=== PATIENT | female | born 1935 | race Caucasian/White ===

== ENCOUNTER 2020-05-12 14:15 | Inpatient (IN) | payer MEDICARE, MEDICAID ==
[~2020-05-12] VITALS: Ht 165.1 cm; Wt 99.8 kg
--- NOTE | 2020-05-12 14:15 | NUR ---
BIBRA 80 FROM HOME C/O L SIDED CHEST PRESSURE STARTED 1HR PERFORMANCE IMPROVEMENT MANAGER. 2 SPRAYS NTG GIVEN, TO ER BED 9, HOOKED TO FUR DRESSING SUPERVISOR, BP CUFF AND POX, NOTED WITH NORMAL SINUS RHYTHM. CHANGED TO HOSP GOWN, WARM BLANKET PROVIDED, PATIENT AAO x 4. NAD NOTED. AWAITING MD ARCOS
--- NOTE | 2020-05-12 14:16 | NUR ---
DR HERNÁNDEZ AT BEDSIDE
[2020-05-12] MEDS ORDERED: BUDE10.22 INH (14:26)
[2020-05-12] MEDS ORDERED: MEMA1CAP2 PO (14:26)
[2020-05-12] MEDS ORDERED: LORA10TA7 PO (14:26)
[2020-05-12] MEDS ORDERED: CARV12.52 PO (14:26)
[2020-05-12] MEDS ORDERED: CLOP75TA15 PO (14:26)
[2020-05-12] MEDS ORDERED: SITA100T PO (14:26)
[2020-05-12] MEDS ORDERED: ZOLP5TAB8 PO (14:26)
[2020-05-12] MEDS ORDERED: MYRBETRIQ PO (14:26)
[2020-05-12] MEDS ORDERED: ROSU20TA32 PO (14:26)
[2020-05-12] MEDS ORDERED: METF-442 PO (14:26)
[2020-05-12 14:34] LABS: BASOPHILS # (AUTO) 0.1 /CMM (0.0-0.2); BASOPHILS % (AUTO) 1.1 % (0.0-2.0); EOSINOPHILS % (AUTO) 1.6 % (0.0-6.0); HEMATOCRIT 40 % (33-45); LYMPHOCYTES # (AUTO) 1.5 /CMM (0.8-4.8); LYMPHOCYTES % (AUTO) 28.8 % (20.0-44.0); MEAN CORPUSCULAR HGB CONC 33 g/dl (31.0-36.0); MEAN CORPUSCULAR VOLUME 83 fL (82-100); MONOCYTES # (AUTO) 0.3 /CMM (0.1-1.30); MONOCYTES % (AUTO) 6.1 % (2.0-12.0); NEUTROPHILS # (AUTO) 3.3 /CMM (1.8-8.9); NEUTROPHILS % (AUTO) 62.4 % (43.0-81.0); PLATELET COUNT (AUTO) 194 /CMM (150-450); WHITE BLOOD COUNT (AUTO) 5.3 K/uL (4.3-11.0)
[2020-05-12 14:46] LABS: CALCIUM, SERUM 9.3 mg/dL (8.5-10.1); CARBON DIOXIDE 25 mmol/L (21-32); CHLORIDE 103 mmol/L (98-107); CREATININE 1.2 mg/dL (0.6-1.3); GLUCOSE 174 mg/dL (74-106); POTASSIUM 3.6 mmol/L (3.5-5.1); SODIUM SERUM 140 mmol/L (136-145); UREA NITROGEN, BLOOD 19 mg/dL (7-18)
[2020-05-12 14:59] LABS: B-TYPE NATRIURETIC PEPTIDE 147 PG/ML (0-125)
--- NOTE | 2020-05-12 17:16 | NUR ---
RAPID COVID SWAB DONE AND SENT TO LAB
[2020-05-12] MEDS ORDERED: HOME MED MISCELLANEOUS XX SCH ×2 (18:00)
[2020-05-12] MEDS ORDERED: HYDROCODONE/APAP 5/325MG TABLET PO PRN (18:00)
[2020-05-12] MEDS ORDERED: NITROGLYCERIN 0.4 MG/TAB BOTTLE SL PRN (18:00)
[2020-05-12] MEDS ORDERED: MAGNESIUM HYDROXIDE 30 ML UDC PO PRN (18:00)
[2020-05-12] MEDS ORDERED: ACETAMINOPHEN 325 MG TABLET PO PRN (18:00)
[2020-05-12] MEDS ORDERED: Z GUARD REMEDY 2 OZ OINT TP PRN (18:00)
[2020-05-12] MEDS ORDERED: MORPHINE SULFATE INJ 2 MG/ML DISP.SYRIN IV PRN (18:00)
[2020-05-12] MEDS ORDERED: TEMAZEPAM 15 MG CAPSULE PO PRN (18:00)
[2020-05-12] MEDS ORDERED: MAG HYDROX/AL HYDROX/SIMETH 30 ML UDC PO PRN (18:00)
[2020-05-12] MEDS ORDERED: ONDANSETRON HCL/PF 4 MG/2 ML VIAL IVP PRN (18:00)
--- NOTE | 2020-05-12 18:04 | NUR ---
RECEIVED RESULT FROM MAIN LAB: RAPID COVID NEGATIVE
--- NOTE | 2020-05-12 18:30 | NUR ---
BEDSIDE REPORT GIVEN TO PAUL SPAULDING OF TELE UNIT
--- NOTE | 2020-05-12 19:40 | NUR ---
fire equipment operator opening notes Received Pt from morning nurse. Pt is laying in bed comfortably talking on her cellphone. Pt is alert and orientedX4. Pt speaks [place] African/K[place]akh and able to make needs known. Respiration is normal in room air. No SOB. No S/S of distress noted. IV site at R hand#20 is clean, intact, flushes well and SL. Tele monitor showed SR HR at 73. Safety precautions is maintained. Bed at low position, brakes locked, siderailsupX2, hob elevated and call light is within reach. Will continue to monitor.
--- NOTE | 2020-05-12 19:55 | NUR ---
metal work duct installer notes Pt's having ECHO done at the bedside with
[2020-05-12 20:00] VITALS: BP 154/98
--- NOTE | 2020-05-12 20:33 | NUR ---
middle school music teacher notes Informed and notified Dr. Real regarding Pt's has history of diabetes. MD ordered mild sliding scale ACHS. Ordered carried out. Charge nurse is gomez and informed.
[2020-05-12] MEDS: CARVEDILOL 12.5 MG TABLET PO SCH (20:45)
[2020-05-12] MEDS ORDERED: DEXTROSE 50%-WATER 50 ML DISP.SYRIN IV PRN (21:00)
[2020-05-12] MEDS ORDERED: ATORVASTATIN 40 MG TABLET PO SCH (22:00)
[2020-05-12] MEDS: BLOOD SUGAR DIAGNOSTIC 1 EACH STRIP IN SCH (22:32)
[2020-05-12] MEDS: INSULIN REGULAR, HUMAN 100 UNIT/ML 3 ML VIAL SQ PRN (22:33)
--- NOTE | 2020-05-12 22:49 | NUR ---
population health coach notes Pt is having insomnia and requesting a sleeping pill. Administered restoril 15 mg/po/prn as ordered per Pt's requested. Safety precautions is maintained. Will continue to monitor.
--- NOTE | 2020-05-12 22:58 | NUR ---
editorial project manager notes Spoke with Pt's daughter per Pt request on the phone. Pt called daughter on her cellphone. Pt's daughter named Catherine. Pt's daughter stated that her mom wants to be full code and refused flu vaccine. Pt also wears lower and upper dentures. Will continue to monitor.
[2020-05-13] VITALS: BP 142/75
[2020-05-13 04:00] VITALS: BP 146/89
--- NOTE | 2020-05-13 04:10 | NUR ---
db2 developer notes Pt is complaining of headache and requesting meds. Administered tylenol 325 mg/2 tabs/po/prn as ordered for headache. Safety precautions is maintained. Will continue to monitor.
[2020-05-13 06:04] LABS: BASOPHILS % (AUTO) 0.5 % (0.0-2.0); EOSINOPHILS % (AUTO) 1.7 % (0.0-6.0); HEMATOCRIT 37 % (33-45); HEMOGLOBIN 12.3 g/dL (11.5-14.8); LYMPHOCYTES # (AUTO) 1.7 /CMM (0.8-4.8); LYMPHOCYTES % (AUTO) 33.2 % (20.0-44.0); MEAN CORPUSCULAR HGB CONC 33 g/dl (31.0-36.0); MEAN CORPUSCULAR VOLUME 82 fL (82-100); MONOCYTES # (AUTO) 0.4 /CMM (0.1-1.30); MONOCYTES % (AUTO) 7.8 % (2.0-12.0); NEUTROPHILS % (AUTO) 56.8 % (43.0-81.0); PLATELET COUNT (AUTO) 171 /CMM (150-450); RED BLOOD CELL COUNT(AUTO) 4.55 MIL/uL (4.0-5.2); WHITE BLOOD COUNT (AUTO) 5.2 K/uL (4.3-11.0)
[2020-05-13] MEDS: BLOOD SUGAR DIAGNOSTIC 1 EACH STRIP IN SCH ×2 (06:30→12:40)
--- NOTE | 2020-05-13 06:30 | NUR ---
project analyst notes Pt's blood sugar in am is 100. No insulin coverage is given per level ordered. Charge nurse is aware and informed. Will continue to monitor.
[2020-05-13 06:33] LABS: CREATININE 0.9 mg/dL (0.6-1.3); MAGNESIUM 1.9 mg/dL (1.8-2.4); PHOSPHORUS 3.6 mg/dL (2.5-4.9); POTASSIUM 3.8 mmol/L (3.5-5.1)
[2020-05-13] MEDS: INSULIN REGULAR, HUMAN 100 UNIT/ML 3 ML VIAL SQ PRN (06:37)
--- NOTE | 2020-05-13 06:43 | NUR ---
power digger operator closing notes Pt is resting in bed comfortably. Pt is alert and orientedX4. Respiration is normal in room air with O2 sat is 96%. No SOB. No S/S of distress noted. VS is stable. Afebrile. Routine meds were given as ordered. IV site at R hand#20 is clean, intact, flushes well and SL. Tele monitor showed SR HR at 74. Kept Pt clean, dry and comfortable. All needs met and attended. Safety precautions is maintained. Bed at low position, brakes locked, siderailsupX2, hob elevated and call light is within reach. Will endorse to morning nurse for JENNIFER.
[2020-05-13 06:49] LABS: THYROID STIMULATING HORMONE 1.877 uIU/mL (0.358-3.74)
[2020-05-13] MEDS ORDERED: PANTOPRAZOLE 40 MG TABLET.DR PO SCH (07:30)
[2020-05-13 08:00] VITALS: BP 148/85
--- NOTE | 2020-05-13 08:00 | NUR ---
tele transportation clerk: initial assessment received pt in bed awake, a/ox4; telugu/kosovan speaking only. reality orientation provided prn. no c/o chest pain, sob, or any discomfort. seen by dr. carpenter (cardio). instructed to call for assistance. will continue to monitor.
[2020-05-13] MEDS: CARVEDILOL 12.5 MG TABLET PO SCH (08:39)
[2020-05-13] MEDS ORDERED: ASPIRIN 81 MG TAB.CHEW PO SCH (09:00)
[2020-05-13] MEDS ORDERED: METFORMIN 500 MG TABLET PO SCH (09:00)
[2020-05-13] MEDS ORDERED: LINAGLIPTIN 5 MG TABLET PO SCH (09:00)
[2020-05-13] MEDS ORDERED: VALSARTAN 80 MG TABLET PO SCH (09:00)
[2020-05-13] MEDS ORDERED: CLOPIDOGREL BISULFATE 75 MG TABLET PO SCH (09:00)
[2020-05-13] MEDS ORDERED: LORATADINE 10 MG TABLET PO SCH (09:00)
--- NOTE | 2020-05-13 12:00 | NUR ---
m/s viral: md visit seen by dr. schneider with order to elsa singh. order acknowledged. pt made aware. family to pick her up. Addendum: 05/13/20 at 1525 by KAYLYN MCFARLAND LVN tele removed as ordered.
[2020-05-13 13:38] VITALS: BP 142/89
--- NOTE | 2020-05-13 14:30 | NUR ---
m/s manager clinic: discharge instructions discharge instructions given with turkish staff translating, pt verbalized understanding and will follow up with her primary as stated. h/l removed with tip intact. awaiting for daughter to pick her up. all belongings/valuables returned.
--- NOTE | 2020-05-13 14:53 | NUR ---
m/s cloud administrator: discharged discharged home accompanied by and grandson via private car in stable condition with valuables and d'c papers.
== END 2020-05-13 14:58 | disposition home or self-care (01) | DRG 303 ==
LOC: ER 14:17 → TELE 17:29 → MED 05-13 11:40
PROVIDERS: ADMIT Nurse Practitioner Acute Care; ATTEND Nurse Practitioner Acute Care
DX: I25.10 Atherosclerotic heart disease of native coronary artery without angina pectoris (principal); I10 Essential (primary) hypertension; F03.90 Unspecified dementia, unspecified severity, without behavioral disturbance, psychotic disturbance, mood disturbance, and anxiety; E11.9 Type 2 diabetes mellitus without complications; E78.5 Hyperlipidemia, unspecified; E66.01 Morbid (severe) obesity due to excess calories; J45.909 Unspecified asthma, uncomplicated; Z68.36 Body mass index [BMI] 36.0-36.9, adult; I45.10 Unspecified right bundle-branch block; N32.81 Overactive bladder; Z20.822 Contact with and (suspected) exposure to COVID-19
CPT/HCPCS: 36415; 71045-TC; 80048-TC; 80061-TC; 82962-TC; 83735-TC; 83880; 84100-TC; 84443-TC; 84484-TC; 85025-TC; 87081-TC; 93307-TC; G0378; J1815